=== PATIENT | male | born 1965 | race Hispanic/Latino ===

== ENCOUNTER → 2024-10-02 | Outpatient (CLI) | payer OTHER ==
--- NOTE | 2024-10-02 14:27 | HMCIMG ---
CT NONCONTRAST CHEST Comparison Study: none History: Other nonspecific abnormal finding of lung field Technique: Helical CT of the chest without IV contrast at 5 mm collimation. Coronal and sagittal reformations also done. CT Dose Index (CTDI): 2.38 mGy Dose Length Product (DLP): 94.8 total mGy-cm Findings: The airway is intact. The trachea and major bronchi are unremarkable. The chest exam shows no pulmonary nodules or masses. Significant pulmonary interstitial fibrotic changes, with end-stage fibrosis of the right upper lobe with cystic degeneration and bronchiectasis. These findings are consistent with given history of remote and treated tuberculosis in the past. No pleural effusions are identified. There is no pneumothorax. There is no evidence of pneumomediastinum. The nonenhanced exam of the minerva and mediastinum is unremarkable. No evidence of hilar enlargement is seen. The aorta shows no aneurysmal dilatation or significant atheromatous calcification. No significant brachiocephalic vascular abnormalities are seen. The heart is unremarkable. It is not enlarged. No significant coronary arterial calcifications are seen. There is no pericardial effusion. The rib cage appears unremarkable. The soft tissues of the chest wall are unremarkable. The dorsal spine shows no significant abnormalities. 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 These findings are consistent with given history of remote and treated tuberculosis in the past. This study was performed using dose reduction techniques to include automated exposure control and/or adjustment of the mA and/or kV according to patient size.
== END | disposition home or self-care (01) ==
LOC: EEVIPCON 13:33 → RAH 13:33
PROVIDERS: ATTEND Family Medicine
DX: J47.9 Bronchiectasis, uncomplicated (principal); J84.10 Pulmonary fibrosis, unspecified; R91.8 Other nonspecific abnormal finding of lung field
CPT/HCPCS: 71250